=== PATIENT | male | born 1990 | race American Indian/Alaskan Native ===

== ENCOUNTER 2016-10-20 22:50 | Emergency (ER) | payer MEDICAID ==
[2016-10-20 23:05] VITALS: BP 119/78; PULSE 81; RESP 17; TEMP 98.3; O2SAT 97
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
[2016-10-21 00:03] LABS: RBC URINE 1 /hpf (0-3); URINE BILIRUBIN NEGATIVE (NEGATIVE); URINE BLOOD NEGATIVE (NEGATIVE); URINE COLOR Yellow (YELLOW); URINE GLUCOSE (UA) NORMAL (Normal); URINE KETONE NEGATIVE (NEGATIVE); URINE LEUKOCYTE ESTERASE NEG Leu/uL (Negative); URINE PROTEIN NEGATIVE (NEGATIVE); WBC URINE 3 /hpf (0-5)
== END 2016-10-21 00:08 | disposition home or self-care (01) ==
LOC: C.ER 22:50 → SUPCPDRO 22:50 → C.ER 10-21 00:08
DX: A64 Unspecified sexually transmitted disease (principal)

== ENCOUNTER 2016-10-23 21:00 | Emergency (ER) | payer MEDICAID ==
[2016-10-23 21:17] VITALS: BP 107/67; PULSE 89; TEMP 98.3; O2SAT 97
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
--- NOTE | 2016-10-23 21:55 | RAD ---
Right hand three views History: Injury. Comparison: None available. Findings: Angulated deformity through the midshaft of the 2nd metacarpal bone suggestive for chronic fracture deformity. No evidence of acute displaced fracture or dislocation. Impression: Angulated deformity through the midshaft of the 2nd metacarpal bone suggestive for chronic fracture deformity. No evidence of acute displaced fracture or dislocation. Negative acute. If pain persists, consider MRI.
[2016-10-23 21:59] VITALS: RESP 20
== END 2016-10-23 21:56 | disposition home or self-care (01) ==
LOC: C.ER 21:00
DX: S60.221A Contusion of right hand, initial encounter (principal); Y04.0XXA Assault by unarmed brawl or fight, initial encounter; Y92.9 Unspecified place or not applicable